=== PATIENT | female | born 1955 | race Asian ===

== ENCOUNTER 2024-10-20 06:24 | Day surgery (SDC) | payer OTHER, SELFPAY | END 2024-10-20 08:39 | disposition home or self-care (01) | LOC: GI 06:24 | PROVIDERS: ATTENDING PHYSICIAN Internal Medicine | DX: Z12.11 Encounter for screening for malignant neoplasm of colon (principal); K57.30 Diverticulosis of large intestine without perforation or abscess without bleeding; D12.3 Benign neoplasm of transverse colon; Z86.0101 Personal history of adenomatous and serrated colon polyps | CPT/HCPCS: 45385; 88305 ==